=== PATIENT | male | born 1985 ===

== ENCOUNTER 2025-05-24 21:34 | Emergency (ER) | payer OTHER ==
[~2025-05-24] VITALS: Ht 172.7 cm; Wt 70.5 kg
[~2025-05-24 21:34] MED LIST: ACET-2247 PO; AMLO-257 PO; ASPI-1450 PO; CARV3 PO; CINA30TA32 PO; ERYT3.5O8 OU; MELA3TAB89 PO; MIDO5TAB29 PO; POLY17PO47 PO; SEVE800T24 PO
[2025-05-24 21:41] VITALS: TEMP 98.6
[2025-05-25 04:01] VITALS: BP 104/76; PULSE 85; RESP 18; O2SAT 99
== END 2025-05-25 04:43 | disposition home or self-care (01) ==
LOC: EMS 21:34
DX: S60.222A Contusion of left hand, initial encounter (principal); I10 Essential (primary) hypertension; Z98.890 Other specified postprocedural states; Z79.82 Long term (current) use of aspirin; Z86.73 Personal history of transient ischemic attack (TIA), and cerebral infarction without residual deficits; Z99.2 Dependence on renal dialysis; Z79.899 Other long term (current) drug therapy; W06.XXXA Fall from bed, initial encounter; Y93.89 Activity, other specified; Y92.89 Other specified places as the place of occurrence of the external cause; Y99.8 Other external cause status
CPT/HCPCS: 99283